=== PATIENT | female | born 1980 | race Two or more races ===

== ENCOUNTER 2024-05-08 17:23 | Emergency (ER) | payer OTHER ==
[~2024-05-08] VITALS: Ht 170.2 cm; Wt 86.2 kg
== END 2024-05-08 19:54 | disposition home or self-care (01) ==
LOC: ER 17:24
DX: S82.434A Nondisplaced oblique fracture of shaft of right fibula, initial encounter for closed fracture (principal); X50.9XXA Other and unspecified overexertion or strenuous movements or postures, initial encounter; Y93.89 Activity, other specified; Y92.238 Other place in hospital as the place of occurrence of the external cause